=== PATIENT | female | born 2000 | race Hispanic/Latino ===

== ENCOUNTER 2022-03-29 15:46 | Emergency (ER) | payer SELFPAY ==
--- NOTE | 2022-03-29 17:12 | RAD REPORT ---
EXAM DESCRIPTION: US - Transvaginal OB - 03/29/2022 4:48 pm CLINICAL HISTORY: with pelvic pain COMPARISON: None. FINDINGS: The uterus measures 8 x 4 x 4 centimeters. A normal appearing gestational sac is present within the endometrium. Within this is a yolk sac and pole with a crown-rump length 0.2 centime ters. Cardiac activity 96 beats per minute Right and left ovary appear normal. The right and left adnexa are unremarkable No significant free fluid is seen. IMPRESSION: Single live intrauterine with an estimated gestational age 6 weeks 0 days [place] 11/22/2022 Cardiac activity mildly diminished at 96 beats per minute
[2022-03-29] MEDS ORDERED: NA CHLORIDE 0.9% 1,000 ML ONE (17:19)
[2022-03-29 17:21] LABS: Absolute Lymphocytes (CBC) 2.3 K/uL (0.7-4.9); Hematocrit 37.5 % (36.0-45.0); Lymphocytes % 29.3 % (15.3-44.8); MCV 92.2 fL (80-100); RBC Red Blood Cell Count 4.06 M/uL (3.86-4.86)
[2022-03-29 17:39] LABS: Urine Blood Negative (Negative); Urine Glucose Negative (Negative); Urine Protein Negative (Negative)
[2022-03-29 17:44] LABS: Potassium 3.6 mmol/L (3.5-5.1)
--- NOTE | 2022-03-29 17:57 | ER ---
Nurse's Notes [facility] Name: Charlotte Chandler Age: 21 yrs Sex: Female : 2000 Arrival Date: 03/29/2022 Time: 15:49 Bed 26 Private MD: Diagnosis: Threatened ;Less than 8 weeks gestation of ;Encounter for supervision of normal , unspecified, first trimester;Hypoglycemia, unspecified Presentation: 03/29 16:04 Chief complaint: Patient states: Pt reports positive test last week, iw abdominal cramping that began 2 days ago with clear discharge. Pt denies bleeding LMP 02/08/2022. A0. Coronavirus screen: Vaccine status: Patient reports being unvaccinated. Client denies travel out of the [place] in the last 14 days. Ebola Screen: Patient negative for fever greater than or equal to 101.5 degrees Fahrenheit, and additional compatible Ebola Virus Disease symptoms Patient denies exposure to infectious person. Patient denies travel to an Ebola-affected area in the 21 days before illness onset. Initial Sepsis Screen: Does the patient meet any 2 criteria? No. Patient's initial sepsis screen is negative. Does the patient have a suspected source of infection? No. Patient's initial sepsis screen is negative. Risk Assessment: Do you want to hurt yourself or someone else? Patient reports no desire to harm self or others. Onset of symptoms was March 27, 2022. 16:04 Method Of Arrival: Ambulatory iw 16:04 Acuity: AYDE 4 iw Triage Assessment: 16:07 General: Appears in no apparent distress. Behavior is calm, cooperative. Pain: iw Complains of pain in suprapubic area, right lower quadrant and left lower quadrant Pain does not radiate. Pain currently is 8 out of 10 on a pain scale. Quality of pain is described as crampy. GI: Patient currently denies nausea, vomiting. 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 Last tetanus immunization: up to date. - Social history:: Smoking status: Patient/guardian denies using tobacco, Stopped _ months ago 1. Screenin:50 Abuse screen: Denies threats or abuse. Denies injuries from another. Nutritional eh3 screening: No deficits noted. Tuberculosis screening: No symptoms or risk factors identified. Fall Risk None identified. Assessment: 16:50 General: Appears in no apparent distress. uncomfortable, Behavior is calm, cooperative, eh3 appropriate for age. Pain: Complains of pain in left lower quadrant and right lower quadrant and suprapubic area. Neuro: Level of Consciousness is awake, alert, obeys commands, Oriented to person, place, time, situation. Cardiovascular: Capillary refill < 3 seconds Patient's skin is warm and dry. Respiratory: Airway is patent Respiratory effort is even, unlabored, Respiratory pattern is regular, symmetrical. GI: Bowel sounds present X 4 quads. Abdomen is tender to palpation in right lower quadrant and left lower quadrant. : Reports discharge, from vagina that is watery. EENT: No signs and/or symptoms were reported regarding the EENT system. Derm: No signs and/or symptoms reported regarding the dermatologic system. Musculoskeletal: No signs and/or symptoms reported regarding the musculoskeletal system. Circulation, motion, and sensation intact. Range of motion: intact in all extremities. 17:45 Reassessment: Patient and/or family updated on plan of care and expected duration. Pain eh3 level reassessed. Patient is alert, oriented x 3, equal unlabored respirations, skin warm/dry/pink. Vital Signs: 16:04 BP 126 / 67; Pulse 61; Resp 20; Temp 98.1; Pulse Ox 100% ; Weight 64.41 kg; Height 5 iw ft. 6 in. (167.64 cm); Pain 8/10; 16:50 BP 115 / 63; Pulse 62; Resp 18; Pulse Ox 100% on R/A; eh3 17:45 BP 103 / 56; Pulse 59; Resp 18; Pulse Ox 100% on R/A; eh3 16:04 Body Mass Index 22.92 (64.41 kg, 167.64 cm) iw ED Course: 15:49 Patient arrived in ED. rg4 16:07 Triage completed. iw 16:07 Arm band placed on right wrist. 16:10 Lj Cruz MD is Attending Physician. molly 16:27 Amairani Castillo, RN is Primary Nurse. eh3 16:49 Transvaginal Ob In Process Unspecified. EDMS 16:50 Patient has correct armband on for positive identification. Bed in low position. Call eh3 light in reach. Side rails up X2. Adult w/ patient. Pulse ox on. NIBP on. Door closed. Noise minimized. Lights dimmed. Warm blanket given. 17:10 Inserted saline lock: 20 gauge in left antecubital area, using aseptic technique. Blood eh3 collected. 17:56 Lupillo Jacobo MD is Referral Physician. [facility] 18:03 No provider procedures requiring assistance completed. eh3 18:04 IV discontinued, intact, bleeding controlled, No redness/swelling at site. Pressure eh3 dressing applied. Administered Medications: 17:10 Drug: NS 0.9% 1000 ml Route: IV; Rate: 1 bolus; Site: left antecubital; eh3 18:00 Follow up: IV Status: Completed infusion; IV Intake: 1000ml eh3 18:15 Follow up: IV Status: Completed infusion; IV Intake: 1000ml eh3 Medication: 18:03 VIS not applicable for this client. eh3 Intake: 18:00 IV: 1000ml; Total: 1000ml. eh3 18:15 IV: 1000ml; Total: 2000ml. eh3 Outcome: 17:56 Discharge ordered by . molly 18:04 Discharged to home ambulatory, with significant other. eh3 18:04 Condition: stable 18:04 Discharge instructions given to patient, Instructed on discharge instructions, follow up and referral plans. Demonstrated understanding of instructions, follow-up care. 18:04 Patient left the ED. eh3 Signatures: Dispatcher [employer] EDPA Lj Cruz MD MD cha Williams, Irene, RN PHYLLIS Laina Martinez [facility] Amairani Castillo, PHYLLIS RN eh3 Corrections: (The following items were deleted from the chart) 18:02 16:45 BP 115 / 63; Pulse 62bpm; Resp 18bpm; Pulse Ox 100% RA; eh3 eh3
--- NOTE | 2022-03-29 17:57 | EDPHYS ---
Physician Documentation [facility] Name: Charlotte Chandler Age: 21 yrs Sex: Female : 2000 Arrival Date: 03/29/2022 Time: 15:49 Bed 26 Private MD: ED Physician Lj Cruz HPI: 03/29 17:23 This 21 yrs old Female presents to ER via Ambulatory with complaints of molly Abdominal Cramping, Unknown Wks . 17:23 The patient presents to the emergency department with vaginal bleeding, that is light. molly The estimated gestational age is 6 weeks. course: care: none, Leakage of Fluid: none appreciated. Previous pregnancies: the patient has never been . Associated signs and symptoms: The patient has no apparent associated signs or symptoms. The patient has not experienced similar symptoms in the past. 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 Last tetanus immunization: up to date. - Social history:: Smoking status: Patient/guardian denies using tobacco, Stopped _ months ago 1. ROS: 17:24 Constitutional: Negative for fever, chills, and weight loss, Eyes: Negative for injury, molly pain, redness, and discharge, ENT: Negative for injury, pain, and discharge, Neck: Negative for injury, pain, and swelling, Cardiovascular: Negative for chest pain, palpitations, and edema, Respiratory: Negative for shortness of breath, cough, wheezing, and pleuritic chest pain, Abdomen/GI: Negative for abdominal pain, nausea, vomiting, diarrhea, and constipation, Back: Negative for injury and pain, MS/Extremity: Negative for injury and deformity, Skin: Negative for injury, rash, and discoloration, Neuro: Negative for headache, weakness, numbness, tingling, and seizure, Psych: Negative for depression, anxiety, suicide ideation, homicidal ideation, and hallucinations, Allergy/Immunology: Negative for hives, rash, and allergies, Endocrine: Negative for neck swelling, polydipsia, polyuria, polyphagia, and marked weight changes, Hematologic/Lymphatic: Negative for swollen nodes, abnormal bleeding, and unusual bruising. 17:24 : Positive for pelvic pain, vaginal bleeding. Exam: 17:24 Constitutional: This is a well developed, well nourished patient who is awake, alert, molly and in no acute distress. Head/Face: Normocephalic, atraumatic. Eyes: Pupils equal round and reactive to light, extra-ocular motions intact. Lids and lashes normal. Conjunctiva and sclera are non-icteric and not injected. Cornea within normal limits. Periorbital areas with no swelling, redness, or edema. ENT: Nares patent. No nasal discharge, no septal abnormalities noted. Tympanic membranes are normal and external auditory canals are clear. Oropharynx with no redness, swelling, or masses, exudates, or evidence of obstruction, uvula midline. Mucous membranes moist. Neck: Trachea midline, no thyromegaly or masses palpated, and no cervical lymphadenopathy. Supple, full range of motion without nuchal rigidity, or vertebral point tenderness. No Meningismus. Chest/axilla: Normal chest wall appearance and motion. Nontender with no deformity. No lesions are appreciated. Cardiovascular: Regular rate and rhythm with a normal S1 and S2. No gallops, murmurs, or rubs. Normal PMI, no JVD. No pulse deficits. Respiratory: Lungs have equal breath sounds bilaterally, clear to auscultation and percussion. No rales, rhonchi or wheezes noted. No increased work of breathing, no retractions or nasal flaring. Abdomen/GI: Soft, non-tender, with normal bowel sounds. No distension or tympany. No guarding or rebound. No evidence of tenderness throughout. Back: No spinal tenderness. No costovertebral tenderness. Full range of motion. Skin: Warm, dry with normal turgor. Normal color with no rashes, no lesions, and no evidence of cellulitis. MS/ Extremity: Pulses equal, no cyanosis. Neurovascular intact. Full, normal range of motion. Neuro: Awake and alert, GCS 15, oriented to person, place, time, and situation. Cranial nerves II-XII grossly intact. Motor strength 5/5 in all extremities. Sensory grossly intact. Cerebellar exam normal. Normal gait. Psych: Awake, alert, with orientation to person, place and time. Behavior, mood, and affect are within normal limits. Vital Signs: 16:04 BP 126 / 67; Pulse 61; Resp 20; Temp 98.1; Pulse Ox 100% ; Weight 64.41 kg; Height 5 iw ft. 6 in. (167.64 cm); Pain 8/10; 16:50 BP 115 / 63; Pulse 62; Resp 18; Pulse Ox 100% on R/A; eh3 17:45 BP 103 / 56; Pulse 59; Resp 18; Pulse Ox 100% on R/A; eh3 16:04 Body Mass Index 22.92 (64.41 kg, 167.64 cm) iw MDM: 16:10 Patient medically screened. molly 17:25 Differential diagnosis: threatened Ab, inevitable Ab, complete Ab, ectopic . molly Data reviewed: vital signs, nurses notes, lab test result(s), radiologic studies, ultrasound. Data interpreted: satellite project site monitor: rate is 61 beats/min, rhythm is regular, Pulse oximetry: on room air. Test interpretation: by ED physician or midlevel provider:. Counseling: I had a detailed discussion with the patient and/or guardian regarding: the historical points, exam findings, and any diagnostic results supporting the discharge/admit diagnosis, lab results, the need for outpatient follow up, for definitive care, an OB/Gyne specialist. 03/29 16:11 Order name: Abo/rh Typing; Complete Time: 17:56 [facility] 03/29 16:11 Order name: Basic Metabolic Panel; Complete Time: 17:56 [facility] 03/29 16:11 Order name: CBC with Diff; Complete Time: 17:46 [facility] 03/29 16:11 Order name: Quantitative Hcg; Complete Time: 17:56 [facility] 03/29 17:39 Order name: Urine Dipstick-Ancillary; Complete Time: 17:46 [facility] 03/29 17:41 Order name: Urine --Ancillary (enter results); Complete Time: 17:56 mw2 03/29 16:11 Order name: US Transvaginal Ob; Complete Time: 17:16 [facility] 03/29 16:11 Order name: IV Saline Lock; Complete Time: 17:16 [facility] 03/29 16:11 Order name: Labs collected and sent; Complete Time: 17:16 [facility] 03/29 16:11 Order name: NPO; Complete Time: 16:29 [facility] 03/29 16:11 Order name: Urine Dipstick-Ancillary (obtain specimen); Complete Time: 17:40 [facility] 03/29 16:11 Order name: Urine Test (obtain specimen); Complete Time: 17:41 [facility] 03/29 17:47 Order name: PO challenge: juice, food; Complete Time: 18:00 molly Administered Medications: 17:10 Drug: NS 0.9% 1000 ml Route: IV; Rate: 1 bolus; Site: left antecubital; eh3 18:00 Follow up: IV Status: Completed infusion; IV Intake: 1000ml eh3 18:15 Follow up: IV Status: Completed infusion; IV Intake: 1000ml eh3 Disposition Summary: 03/29/22 17:56 Discharge Ordered Location: Home molly Problem: new molly Symptoms: have improved molly Condition: Stable molly Diagnosis - Threatened molly - Less than 8 weeks gestation of molly - Encounter for supervision of normal , unspecified, first trimester molly - Hypoglycemia, unspecified molly Followup: molly - With: Private Physician - When: 2 - 3 days - Reason: Recheck today's complaints, Continuance of care, Re-evaluation by your physician Followup: molly - With: - When: 2 - 3 days - Reason: Recheck today's complaints, Re-evaluation by your physician Discharge Instructions: - Discharge Summary Sheet molly - Care molly - Threatened Miscarriage molly - Vaginal Bleeding During , First Trimester molly - First Trimester of , [id number] molly - How A Baby Grows During molly - First Trimester of molly - Threatened Miscarriage, [id number] molly - Vaginal Bleeding During , First Trimester, [id number] molly Forms: - Medication Reconciliation Form molly - Thank You Letter molly - Antibiotic Education molly - Prescription Opioid Use molly Signatures: Dispatcher [employer] Lj Fuchs MD MD cha Williams, Irene RN PHYLLIS Amairani Castillo RN RN eh3
== END 2022-03-29 18:04 | disposition home or self-care (01) ==
LOC: ER 15:46
DX: O20.0 Threatened abortion (principal); O99.281 Endocrine, nutritional and metabolic diseases complicating pregnancy, first trimester; E16.2 Hypoglycemia, unspecified; Z3A.08 8 weeks gestation of pregnancy
CPT/HCPCS: 36415; 76817; 80048; 81003; 81025; 84702; 85025; 86900; 86901; 96360; 99284; J7030